=== PATIENT | female | born 1980 | race African-American/Black ===

== ENCOUNTER 2016-09-30 18:41 | Emergency (ER) | payer SELFPAY ==
[~2016-09-30] VITALS: Ht 165.1 cm; Wt 95.0 kg
[2016-09-30] MEDS ORDERED: IBUPROFEN 800MG TABLET PO ONE (22:15)
[2016-09-30] MEDS ORDERED: ACETAMINOPHEN WITH CODEINE 300/30MG TABLET PO ONE (23:15)
[2016-09-30 23:23] VITALS: BP 127/77
== END 2016-10-01 00:14 | disposition home or self-care (01) ==
LOC: ER 18:41
DX: S82.142A Displaced bicondylar fracture of left tibia, initial encounter for closed fracture (principal); W22.8XXA Striking against or struck by other objects, initial encounter; Y93.01 Activity, walking, marching and hiking; Y99.8 Other external cause status; Y92.89 Other specified places as the place of occurrence of the external cause
CPT/HCPCS: 73552; 73560; 73590; 99284; L1830